=== PATIENT | female | born 1960 | race Caucasian/White ===

== ENCOUNTER 2016-10-23 07:50 | Day surgery (SDC) | payer BC ==
[~2016-10-23] VITALS: Ht 162.6 cm; Wt 131.5 kg
[~2016-10-23 07:50] MED LIST: ALLOPURINOL100 MG PO; ALLOPURINOL300 MG; ALLOPURINOL300 MG PO; AMARYL2 MG PO; B-COMPLEX-VITA1 EACH PO; BECLOMETHASONE 80 MCG; CEFTIN500 MG PO; DOXYCYCLINE HY100 MG PO; EFFER-K 10 MEQ10 MEQ PO; ENDOCET 5-3251 EACH PO; FENOFIBRATE145 M1 PO; FENOFIBRATE145 MG; FENOFIBRATE160 M1 PO; FLOMAX0.4 MG PO; FUROSEMIDE20 MG PO; GLIMEPIRIDE4 MG; INSULIN PUMP MC; INSULIN PUMP SCCONT; KEFLEX500 MG PO; LEVEMIR FL100 UNIT/1 SC; LEVEMIR FL100 UNITS/; LEVEMIR FL100 UNITS/ SC; LEVO-T75 MCG PO; LEVOTHROID75 MCG PO; LEVOTHYROXINE75 MCG; LISINOPRIL30 MG; METFORMIN HCL1000 M1; METFORMIN HCL1000 M1 PO; METFORMIN HCL1000 MG PO; MOTRIN600 MG PO; NORCO 5/3251 TABLET PO; NORCO 7.5/321 TABLET PO; NOVOLOG 10100 UNITS/ SC; NOVOLOG PE100 UNITS/; NOVOLOG PE100 UNITS/ SC; POTASSIUM CITR10 MEQ PO; SINGULAIR10 MG PO; SYMBICORT60 INHALA1 IH; TAMSULOSIN HCL0.4 MG PO; UROCIT-K15 MEQ PO; VICTOZA0.6 MG/0.1 SC; VITAMIN D31000 UNIT PO; XOPENEX HF200 INHALA IH; ZESTRIL30 MG PO; ZOFRAN ODT4 MG PO
[2016-10-23 08:23] LABS: POINT-OF-CARE METER ID UU14174212
[2016-10-23 08:32] VITALS: BP 138/63
[2016-10-23 11:57] LABS: POINT-OF-CARE METER ID UU13113675
[2016-10-23] MEDS ORDERED: ULTRAM50 MG PO (11:58)
[2016-10-23 12:50] VITALS: BP 138/86
[2016-10-23 13:23] VITALS: BP 156/70
== END 2016-10-23 13:29 | disposition home or self-care (01) ==
LOC: SDC 07:50
PROVIDERS: Surgery
DX: I87.8 Other specified disorders of veins (principal); C85.10 Unspecified B-cell lymphoma, unspecified site; E11.9 Type 2 diabetes mellitus without complications; G47.30 Sleep apnea, unspecified; E78.5 Hyperlipidemia, unspecified; E66.01 Morbid (severe) obesity due to excess calories; Z68.42 Body mass index [BMI] 45.0-49.9, adult; Z79.4 Long term (current) use of insulin; Z88.5 Allergy status to narcotic agent; Z88.8 Allergy status to other drugs, medicaments and biological substances
CPT/HCPCS: 71010; 82948; C1751; J0690; J2250; J2405; J2710; J3010

== ENCOUNTER → 2017-09-29 | Outpatient (CLI) | payer BC ==
[~2017-09-29] MED LIST changes: +ULTRAM50 MG PO
== END | disposition home or self-care (01) ==
LOC: AMB 10:10
PROC: 05PY03Z Removal of Infusion Device from Upper Vein, Open Approach (ICD-10-PCS; principal; 2017-09-29)
DX: Z45.2 Encounter for adjustment and management of vascular access device (principal); I87.8 Other specified disorders of veins; Z92.21 Personal history of antineoplastic chemotherapy